=== PATIENT | male | born 1995 | race Caucasian/White ===

== ENCOUNTER 2018-05-02 08:45 | Emergency (ER) | payer OTHER ==
--- NOTE | 2018-05-02 10:12 | RAD ---
LEFT HAND 5TH DIGIT 3 VIEWS: HISTORY: Pain. Hit finger with a sledge hammer. FINDINGS: Nondisplaced distal tuft fracture. No intraarticular extension. IMPRESSION: Tuft fracture. POS: [facility]
== END 2018-05-02 09:42 | disposition home or self-care (01) ==
LOC: NAV ERS 08:45
DX: S62.637A Displaced fracture of distal phalanx of left little finger, initial encounter for closed fracture (principal); J45.909 Unspecified asthma, uncomplicated; F17.210 Nicotine dependence, cigarettes, uncomplicated; W23.1XXA Caught, crushed, jammed, or pinched between stationary objects, initial encounter